=== PATIENT | male | born 1985 | race Caucasian/White ===

== ENCOUNTER 2022-05-09 09:13 | Emergency (ER) | payer MEDICAID ==
[~2022-05-09] VITALS: Ht 167.6 cm; Wt 90.7 kg
[2022-05-09 09:18] VITALS: BP_SYST 166
--- NOTE | 2022-05-09 09:24 | NUR ---
Patient to ER bed Hallway 1 for evaluation. Side rails up. Report given to JEN Nelson.
--- NOTE | 2022-05-09 09:26 | NUR ---
ER Dr. Chaney at bedside examining patient.
[2022-05-09] MEDS ORDERED: IBUPROFEN 600 MG TABLET PO ONE (09:30)
[2022-05-09] MEDS ORDERED: LIDOCAINE PATCH 5% 1 EA TP ONE (09:30)
--- NOTE | 2022-05-09 09:37 | NUR ---
PT TOLERATED MEDICATION WELL.
--- NOTE | 2022-05-09 09:39 | NUR ---
Patient given written and verbal discharge instructions and verbalizes understanding. ER MD discussed with patient the results and treatment provided. Patient in stable condition. ID arm band removed. NO Rx of given. Patient educated on pain management and to follow up with PMD. Pain Scale 3. Opportunity for questions provided and answered. Medication side effect fact sheet provided.
== END 2022-05-09 09:39 ==
LOC: SED 09:13
DX: M54.6 Pain in thoracic spine (principal); G89.29 Other chronic pain; Z13.9 Encounter for screening, unspecified; F12.90 Cannabis use, unspecified, uncomplicated; F17.200 Nicotine dependence, unspecified, uncomplicated
CPT/HCPCS: 99283